=== PATIENT | female | born 1955 | race Caucasian/White ===

== ENCOUNTER → 2019-12-11 16:43 | Outpatient (CLI) | payer BC, SELFPAY ==
--- NOTE | ~2019-12-11 | MR_ITS ---
EXAMINATION: MR lumbar spine wo con EXAM DATE: 12/11/2019 17:45 INDICATION: Chronic low back pain. TECHNIQUE: Multi-sequential, multiplanar MR images of the lumbar spine were obtained without contrast . Sagittal T1, T2, T2 fat saturation images. Axial T2 weighted images. There is no prior study for comparison. FINDINGS: There is a large fat signal intensity lesion in the right gluteus minimus muscle partially imaged, imaged portion is consistent with a lipoma measuring about 9 x 5 cm, was previously imaged on a right hip CT 2014. There is a fluid signal intensity lesion in the right side of the pelvis, possi ble right ovarian cystic mass. There is 3-4 mm anterolisthesis L3 on L4 with mild to moderate loss of this disc height. Mild to mode rate loss of the L5-S1 disc height and moderate to severe loss of the L4-5 disc height, but with only mild endplate degenerative change. Level by level evaluation: T12-L1: Disc does not extend beyond the endplate margin. Facet arthropathy: Mild. Neural foraminal stenosis: No stenosis. Central canal stenosis: No stenosis. L1-L2: Disc does not extend beyond the endplate margin. Facet arthropathy: Mild. Neural foraminal stenosis: No stenosis. Central canal stenosis: No stenosis. L2-L3: There is a mild diffuse disc bulge. Facet arthropathy: Mild to moderate. Neural foraminal stenosis: No stenosis. Central canal stenosis: No stenosis. L3-L4: There is a mild to moderate diffuse disc bulge. Facet arthropathy: Severe . Ligamentum flavum enlargement. Neural foraminal stenosis: Mild to moderate left, mild right. Central canal stenosis: No stenosis. L4-L5: There is a mild to moderate diffuse disc bulge. Facet arthropathy: Moderate. Neural foraminal stenosis: Moderate left, mild to moderate right. Central canal stenosis: Mild to moderate. L5-S1: There is a mild diffuse disc bulge. Facet arthropathy: Mild. Neural foraminal stenosis: No stenosis. Central canal stenosis: No stenosis. IMPRESSION: 1. L3-4 grade 1 anterolisthesis, severe facet arthropathy causing moderate central canal stenosis. 2. Left L4-5 neural foramina is most narrowed on exam. 3. Incidental right-sided pelvic cystic mass incompletely imaged, possible cystic ovarian neoplasm. No evidence of complexity on the images available. Consider pelvic ultrasound or CT pelvis. Reviewed, dictated and finalized at location A. IMPRESSION: 1. L3-4 grade 1 anterolisthesis, severe facet arthropathy causing moderate olivia tral canal stenosis. 2. Left L4-5 neural foramina is most narrowed on exam. 3. Incidental right-sided pelvic cystic mass incompletely imaged, possible cys tic ovarian neoplasm. No evidence of complexity on the images available. Consid er pelvic ultrasound or CT pelvis.
== END ==
DX: M54.16 Radiculopathy, lumbar region (principal)
CPT/HCPCS: 72148

== ENCOUNTER 2022-02-08 02:35 | Day surgery (SDC) | payer BC, SELFPAY ==
[2022-01-28 13:32] VITALS: BMI 21.0
[2022-02-08 11:05] VITALS: BP 120/54; PULSE 60; RESP 18; TEMP 36.6; O2SAT 98; BMI 20.7
[2022-02-08] MEDS: LACTATED RINGERS 1,000 ML 150 ML IV CONT (11:25)
--- NOTE | 2022-02-08 12:06 | WPDGICN ---
Assessment and Plan Assessment and plan (1) Encounter for screening colonoscopy: Code(s): Z12.11 - Encounter for screening for malignant neoplasm of colon Status: Acute Assessment and Plan: Patient presents today for screening colonoscopy. She appears to be at average risk for colon polyps. Further recommendations may be given after colonoscopy. GI Consult Note Consult date/time: 02/08/22 12:06 HPI: Rehana Bull is a 66 year old female Presents for screening colonoscopy. Patient's current weight appetite bowel movements are normal. She denies abdominal pain. She has had no bleeding. Family history is noncontributory. Patient recently had antibiotics for URI. Subsequently developed diarrhea. She states that this is resolved. She denies any bleeding or weight loss. Review of Systems Review of Systems: All systems reviewed & are unremarkable except as noted in HPI and below PMFSH Social History Social History Years smoked: 30 Smoking status: Heavy tobacco smoker Tobacco type: cigarettes Alcohol intake: never Substance use: never Substance use type: does not use Living arrangements: with family Spiritual care concerns: No Meds Home Medications and Allergies Home Medications Medication Instructions Recorded Confirmed Type amlodipine 5 mg PO DAILY 01/28/22 02/08/22 History bisoprolol-hydrochlorothiazide 5 - 6.25 tablet PO BID 01/28/22 02/08/22 History hydrocodone-acetaminophen 10 - 325 tablet PO PRN PRN 01/28/22 02/08/22 History levothyroxine [Synthroid] 25 mcg PO DAILY 01/28/22 02/08/22 History lysine 500 mg PO DAILY 01/28/22 02/08/22 History quinapril 20 mg PO DAILY 01/28/22 02/08/22 History Allergies Allergy/AdvReac Type Severity Reaction Status Date / Time No Known Allergies Allergy Verified 02/08/22 11:15 Vital Signs Vital Signs - 24 hr 02/08/22 11:05 Temperature 97.8 F Pulse Rate 60 Respiratory Rate 18 Blood Pressure 120/54 L Pulse Oximetry 98 Exam Narrative: Physical exam reveals patient to be alert. Vital signs stable. HEENT exam is unremarkable. Patient is anicteric. Lungs are clear to auscultation and percussion. Heart is without murmur or extra sounds. Abdominal exam bowel sounds are present soft nontender with no organomegaly. Digital external rectal exam is normal.
--- NOTE | 2022-02-08 12:18 | WPDANESEPPF ---
Anes - Initial Pre Proc Eval Procedure: Operation Date: 02/08/22 12:30 Proposed Procedures p Screening Colonoscopy - Michael Montilla MD Date/Time: 02/08/22 12:18 Surgeon: Michael Montilla MD Pre Op Diagnosis: neoplasm screening Patient Data Age: 66 Gender: F Height: 1.7 m Weight: 59.9 kg Last Vital Signs Temp 97.8 F 02/08/22 11:05 Pulse 60 02/08/22 11:05 Resp 18 02/08/22 11:05 BP 120/54 L 02/08/22 11:05 Pulse Ox 98 02/08/22 11:05 Allergies Allergy/AdvReac Type Severity Reaction Status Date / Time No Known Allergies Allergy Verified 02/08/22 11:15 Home Medications Medication Instructions Recorded Confirmed Type amlodipine 5 mg PO DAILY 01/28/22 02/08/22 History bisoprolol-hydrochlorothiazide 5 - 6.25 tablet PO BID 01/28/22 02/08/22 History hydrocodone-acetaminophen 10 - 325 tablet PO PRN PRN 01/28/22 02/08/22 History levothyroxine [Synthroid] 25 mcg PO DAILY 01/28/22 02/08/22 History lysine 500 mg PO DAILY 01/28/22 02/08/22 History quinapril 20 mg PO DAILY 01/28/22 02/08/22 History Patient hx anesthesia problems: none Family hx anesthesia problems: none Results Review: All pre-operative results and documents have been reviewed as part of the pre-operative evaluation. PMFSH Social History Social History Years smoked: 30 Smoking status: Heavy tobacco smoker Tobacco type: cigarettes Alcohol intake: never Substance use: never Substance use type: does not use Living arrangements: with family Spiritual care concerns: No Anes - Eval Final PreProcedure Day of Procedure 02/08/22 12:18 Patient weight: normal Heart: regular rate and rhythm Lungs: clear to auscultation Airway: Mallampati scale class II Neurological: alert and oriented Last oral intake: >/= 8 hours ASA classification: III Emergent: no Anesthetic plan: proceed Anesthesia type and monitoring: general GIVS and standard monitoring Results Review: All pre-operative results and documents have been reviewed as part of the pre-operative evaluation. Informed Consent: The patient's anesthetic plan and its attendant risks and benefits were discussed with the patient/family/POA. Questions were solicited and answers provided to the satisfaction of the patient/family/POA.
--- NOTE | 2022-02-08 13:08 | SUR.OPER ---
ADIA Be and ADIA Doll verified collection of two cecum colon polyps with Dr. Montilla and sent specimen
[2022-02-08 13:10] VITALS: BP 143/63; PULSE 60; RESP 20; O2SAT 100
[2022-02-08 13:20] VITALS: BP 147/67; PULSE 54; RESP 21; O2SAT 100
[2022-02-08 13:30] VITALS: BP 148/59; PULSE 50; RESP 16; O2SAT 100
== END 2022-02-08 13:45 | disposition home or self-care (01) ==
PROVIDERS: Visit Provider Internal Medicine Gastroenterology
PROC: 0DJD8ZZ Inspection of Lower Intestinal Tract, Via Natural or Artificial Opening Endoscopic (ICD-10-PCS; CPT 45378; principal; 2022-02-08 12:30)
DX: Z12.11 Encounter for screening for malignant neoplasm of colon (principal); D12.0 Benign neoplasm of cecum; K64.8 Other hemorrhoids; E03.9 Hypothyroidism, unspecified; F17.210 Nicotine dependence, cigarettes, uncomplicated
CPT/HCPCS: 45385; 88305; J2704; J7120

== ENCOUNTER → 2023-01-24 08:02 | Outpatient (CLI) | payer BC, SELFPAY ==
--- NOTE | ~2023-01-24 | MR_ITS ---
EXAMINATION: MR pelvis wo/w con DATE: 01/24/2023 09:33 INDICATION: Pelvic mass TECHNIQUE: Magnetic resonance imaging (MRI) of the pelvis was performed without and with 10 mL Multih ance intravenous contrast. Fullfield sequences of the pelvis included axial and coronal T2-weighted S S FSE, coronal 2D FIESTA, axial T1-weighted FSPGR, axial dual-echo T1-weighted FSPGR and axial T1 nupur ghted LAVA. Small field of view sequences included axial, sagittal and coronal T2-weighted FSE cente red on the uterus and adnexa. Postcontrast sequences included a time course axial T1-weighted LAVA w ith fullfield of view of the pelvis. COMPARISON: CT dated 03/03/2015 and MRI dated 12/11/2019 FINDINGS: 5.0 x 4.5 x 4.0 cm simple appearing T2 hyperintense right adnexal cyst. The uterus and left ovary are not identified and have likely been surgically resected. Bladder is normal. 1.2 cm T2 hyperintense n onenhancing cyst at the lower pole of the right kidney. Visualized portions of bowels including the a ppendix are normal. No free fluid in the pelvis. No pathologically enlarged pelvic or inguinal lympha denopathy. 11.8 x 10.9 x 7.2 cm right gluteus medius T1 hyperintense and images the fat saturating in tramuscular lipoma. No nodular enhancing soft tissue component. IMPRESSION: 1. 5.0 cm simple appearing right adnexal cyst. 2. 11.8 cm right gluteus medius intramuscular lipoma. Reviewed, dictated and finalized at location A.
== END ==
PROVIDERS: PCP Family Medicine; Visit Provider Surgery
DX: R19.00 Intra-abdominal and pelvic swelling, mass and lump, unspecified site (principal)
CPT/HCPCS: 72197; A9577

== ENCOUNTER 2023-04-18 14:00 | Outpatient (CLI) | payer BC, SELFPAY ==
[2023-04-18 14:33] LABS: Mean Corpuscular HGB Conc 34.1 g/dl (32-36); Mean Corpuscular Hemoglobin 33.3 pg (26-34); Mean Corpuscular Volume 97.6 fl (80-100); Mean Platelet Volume 9.8 fl (7.4-10.4); Platelet Count Result 161 k/mm3 (150-375); Red Blood Count 4.51 M/mm3 (4.2-5.4); White Blood Count 7.1 K/mm3 (4.5-10.0)
[2023-04-18 14:54] LABS: Anion Gap 4 mmol/L (8-16); Blood Urea Nitrogen 10 mg/dL (7-17); Calcium 9.1 mg/dL (8.4-10.2); Carbon Dioxide 36 mmol/L (22-30); Chloride 101 mmol/L (98-107); Estimated Glomerular Filt Rate > 60; Glucose 79 mg/dL (65-110); Potassium 4.1 mmol/L (3.4-5.0); Sodium 141 mmol/L (137-145)
== END 2023-04-18 14:01 | disposition home or self-care (01) ==
LOC: ANHSURGERY 14:06
PROVIDERS: Anesthesiology; PCP Family Medicine; Visit Provider Obstetrics & Gynecology
DX: N94.89 Other specified conditions associated with female genital organs and menstrual cycle (principal); T50.2X5A Adverse effect of carbonic-anhydrase inhibitors, benzothiadiazides and other diuretics, initial encounter; Z01.818 Encounter for other preprocedural examination
CPT/HCPCS: 36415; 80048; 85027; 86850; 86900; 86901

== ENCOUNTER 2023-04-21 02:20 | Day surgery (SDC) | payer BC, SELFPAY ==
[2023-04-18 10:10] VITALS: BMI 20.5
--- NOTE | 2023-04-18 10:16 | SUR.PREOP ---
Report to the Outpatient Waiting Room, entrance under the green pavilion located off [facility], at time _0600 on date _04/21/23 . Planned Procedure Time: _0730 . Time changes happen often and if your time is changed the preop area will call you the afternoon before. - You and your visitor will be asked to self-screen and do not enter if you have any COVID symptoms. - A mask is optional within the hospital at this time. Patients may have clear liquids (water, carbonated beverages, clear teas, apple juice) until 3 hours prior to surgery with a maximum of 20 ounces. - No food from midnight until time of surgery - Infants may have breast milk until 4 hours before surgery, infant formula 6 hours prior to surgery. - Children will be allowed to drink immediately following surgery. If applicable, please bring a bottle or sippy cup to assist with drinking. Juice, water, soda, and popsicles are readily available. For infants on formula, please bring formula the day of surgery. Pacifiers are allowed. Take the following medications with a SIP of water the morning of surgery: _AMLODIPINE,PAIN MEDICATION IF NEEDED DO NOT STOP ANY OF YOUR OTHER PRESCRIPTION MEDICATIONS PRIOR TO SURGERY ?EXCEPT THE FOLLOWING Medications to discontinue per physician __VITAMINS Date to take last dose__04/18/23 Please no make-up, nail colombian, hairspray, perfume, deodorant, or body powder the day of surgery. No jewelry (including any body piercings) or valuables the day of surgery, leave them at home. Please take a shower or bath the night before, or the morning of, surgery with an antibacterial soap. Wear comfortable, loose fitting clothing. Children are encouraged to wear pajamas. - Jewelry must be removed prior to entering the operating room. Rings and piercings that are not removed may be cut off. - The hospital will not accept responsibility for valuables. - Please leave all valuables, including medications, at home the day of surgery. If you are going home after surgery, a licensed livery car driver must drive you home. - NO public transportation without another adult if you receive anesthesia. - We recommend that an adult stay with you for 24 hours following discharge. - We also recommend that you do not drive, make important decision, drink alcoholic beverages, or take any drugs that were not prescribed by your health care provider for at least 24 hours after your discharge time. For Pediatric surgeries, we recommend two adults accompany the child home. Follow any additional instructions given to you from your surgeon. If you or anyone in your household have experienced Covid symptoms in the past week, please notify your surgeon or the nurse liaison at the phone number below for possible testing. Telephone instructions given to PARTH SOFIA and asked if any additional questions and then verbalized understanding. Patient advised to call surgeon office or pre surgery nurse liaison [phone] if any additional questions.
[2023-04-21] VITALS (8 sets, daily range): BP systolic 100–153; BP diastolic 56–87; PULSE 56–75; RESP 12–16; TEMP 36.3–36.6; O2SAT 95–100
[2023-04-21] MEDS: LACTATED RINGERS 1,000 ML 30 ML IV CONT ×2 (06:25→09:11)
[2023-04-21] MEDS: ACETAMINOPHEN 500 MG TABLET 1000 MG PO (07:00)
--- NOTE | 2023-04-21 07:02 | WPDANESEPPF ---
Anes - Initial Pre Proc Eval Procedure: Operation Date: 04/21/23 07:30 Proposed Procedures p Robotic Assisted Laparoscopic Bilateral Salpingo oophorectomy - Mohan Cool MD Date/Time: 04/21/23 07:02 Surgeon: Mohan Cool MD Pre Op Diagnosis: pelvic pain Patient Data Age: 67 Gender: F Height: 1.7 m Weight: 60 kg Last Vital Signs Temp 36.6 C 04/21/23 06:13 Pulse 62 04/21/23 06:13 Resp 16 04/21/23 06:13 BP 153/81 H 04/21/23 06:13 Pulse Ox 100 04/21/23 06:13 O2 Del Method Room Air 04/21/23 06:13 Allergies Allergy/AdvReac Type Severity Reaction Status Date / Time No Known Allergies Allergy Verified 04/21/23 05:59 Home Medications Medication Instructions Recorded Confirmed Type amlodipine 5 mg tablet 5 mg PO DAILY 01/28/22 04/18/23 History bisoprolol 5 5 - 6.25 tablet PO BID 01/28/22 04/18/23 History mg-hydrochlorothiazide 6.25 mg tablet hydrocodone 10 mg-acetaminophen 10 - 325 tablet PO PRN PRN Pain 01/28/22 04/18/23 History 325 mg tablet lysine 500 mg tablet 500 mg PO DAILY 01/28/22 04/18/23 History cholecalciferol (vitamin D3) 50 50 mcg PO DAILY 04/11/23 04/18/23 History mcg (2,000 unit) capsule estradiol 0.01% (0.1 mg/gram) 1 g vaginal 2XW #42.5 grams 04/11/23 04/18/23 Rx vaginal cream lisinopril 20 mg tablet 20 mg PO DAILY 04/18/23 04/18/23 History Patient hx anesthesia problems: none Family hx anesthesia problems: none Results Review: All pre-operative results and documents have been reviewed as part of the pre-operative evaluation. 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 Hx: UTI (urinary tract infection) Hypertension Lipoma of buttock Other ovarian cyst, right side Preeclampsia Surgical History Surgical History Delivery by section H/O breast augmentation H/O colonoscopy (02/08/22) benign tubular adenomas H/O: hysterectomy History of back surgery History of orthopedic surgery right acl tear Family History Family History Mother Cerebrovascular accident, Onset Age: 64 Father Heart disease Social History Social History Years smoked: 30 Smoking status: Former smoker Tobacco type: cigarettes Smoking end date: 01/01/23 Additional smoking assessment comments: cigarettes x30 years 1 ppd Alcohol intake: never Substance use: never Substance use type: marijuana Other substance usage details: eatable,not daily Living arrangements: with family Additional living arrangements comments: Occupation/Education: unemployed Gender identity (if verbalized by the patient): Female Sexual Orientation (if Verbalized by the Patient): Straight or Heterosexual Spiritual care concerns: No Anes - Eval Final PreProcedure Day of Procedure 04/21/23 07:02 Patient weight: normal Heart: regular rate and rhythm Lungs: clear to auscultation Airway: Mallampati scale class II Neurological: alert and oriented Last oral intake: >/= 8 hours ASA classification: III Emergent: no Anesthetic plan: proceed Anesthesia type and monitoring: general ETT and standard monitoring Results Review: All pre-operative results and documents have been reviewed as part of the pre-operative evaluation. Informed Consent: The patient's anesthetic plan and its attendant risks and benefits were discussed with the patient/family/POA. Questions were solicited and answers provided to the satisfaction of the patient/family/POA.
[2023-04-21] MEDS: KETOROLAC 15 MG/ML VIAL (*BKC) IV PUSH (07:03)
--- NOTE | 2023-04-21 07:06 | WPDHPUPDATE1 ---
History and Physical Update Update Date/Time: 04/21/23 07:06 Plan: Proceed with robotic bilateral salpingoophorectomy History and Physical has been reviewed, including an updated exam of the patient. There are NO changes in the patient's condition. Risks, benefits, and alternatives have been discussed and questions answered. Patient agrees to proceed with procedure.
--- NOTE | 2023-04-21 07:28 | SUR.PREOP ---
Discussed delay with patient and her .
--- NOTE | 2023-04-21 09:01 | P.OP_ITS ---
Procedure Note - Detailed Date of Procedure 04/21/23 Pre-op Diagnosis 1. Pelvic pain 2. Right ovarian cyst Post-op Diagnosis Same (3. Adhesions) Procedure Performed 1. Laparoscopic adhesiolysis 2. Laparoscopic bilateral salpingectomy (robotic) Surgeon Mohan Cool MD Anesthesia General Findings 1. Uterus surgically absent 2. Right ovary with large simple cyst 3. Left adnexa with bowel and omental adhesions/left tube and ovary without anatomic abnormality Description of Procedure Patient was prepped and draped in usual manner for this procedure. Abdominal trocar sites were marked and trocars were placed under direct visualization. [email or web address] Chas system was attached to these trocars and instruments were placed again under direct visualization. Findings were noted as above and initially the left adhesions and bowel were taken down sharply and bluntly to reveal the left ovary which was small and without abnormality. Infundibulopelvic ligament was cauterized and cut to release the ovary, and cautery was used on the mesial salpinx to remove the tube. These were both removed. Right infundibulopelvic ligament was then cauterized and cut to release the right tube and ovary. The cyst was drained of clear fluid and the ovary was removed without difficulty. Irrigation was undertaken and there was no significant bleeding. Miguel was placed empirically over all of the surgical edges. Continue to monitor for any bleeding and there was none and at this point the procedure was considered terminated. Gas was allowed to escape trocars removed incisions approximated using 4-0 Monocryl. Patient was sent to recovery room in stable condition. Estimated Blood Loss 50 Drains No Packing No Pathology Yes Complications No immediate complications Condition Stable Disposition PACU [facility] Billing Surgery - Charge Forward: Surgery Billing
[2023-04-21] MEDS: fentaNYL CITRATE INJ (*CRX) 100 MCG/2 ML VIAL 25 MCG IV PUSH ×6 (09:25→09:48)
[2023-04-21] MEDS: oxyCODONE HCL (*CRX) 5 MG TAB IR PO (10:32)
== END 2023-04-21 11:05 | disposition home or self-care (01) ==
PROVIDERS: PCP Family Medicine; Visit Provider Obstetrics & Gynecology
PROC: 8E0W4CZ Robotic Assisted Procedure of Trunk Region, Percutaneous Endoscopic Approach (ICD-10-PCS; CPT 49320; principal; 2023-04-21 07:30)
DX: R10.2 Pelvic and perineal pain (principal); N83.201 Unspecified ovarian cyst, right side; N73.6 Female pelvic peritoneal adhesions (postinfective); E04.9 Nontoxic goiter, unspecified; I10 Essential (primary) hypertension; Z87.891 Personal history of nicotine dependence; F12.90 Cannabis use, unspecified, uncomplicated
CPT/HCPCS: 58661; S2900; 88305; A9270; J1100; J1170; J1885; J2250; J2405; J2704; J2710; J3010; J7120

== ENCOUNTER → 2023-08-22 10:34 | Outpatient (CLI) | payer MEDICARE, SELFPAY ==
--- NOTE | ~2023-08-22 | XR_ITS ---
EXAMINATION: XR wrist LT 2V DATE: 08/22/2023 11:17 INDICATION: Pain in unspecified joint. TECHNIQUE: 2 views of left wrist were obtained. COMPARISON: None. FINDINGS: Bone alignment is normal. No fracture. There is severe osteoarthritis of first carpometacar pal joint. There is a loose body in first carpometacarpal joint. IMPRESSION: 1. Severe osteoarthritis of first carpometacarpal joint with loose body. Reviewed, dictated and finalized at location E. NUE COLLECTOR
--- NOTE | ~2023-08-22 | XR_ITS ---
EXAMINATION: XR wrist RT 2V DATE: 08/22/2023 11:17 INDICATION: Pain in unspecified joint. TECHNIQUE: 2 views of right wrist were obtained. COMPARISON: None. FINDINGS: Bone alignment is normal. No fracture. There is mild osteoarthritis of first carpometacarpa l joint and moderate osteoarthritis of first metacarpophalangeal joint. IMPRESSION: 1. Polyarticular osteoarthritis. Reviewed, dictated and finalized at location E. ET TESTER
--- NOTE | ~2023-08-22 | XR_ITS ---
EXAMINATION: XR foot RT min 3V DATE: 08/22/2023 11:17 INDICATION: Pain in unspecified joint. TECHNIQUE: 4 views of right foot were obtained. COMPARISON: None. FINDINGS: Bone alignment is normal. No fracture. There is mild osteoarthritis of some of the interpha langeal joints. IMPRESSION: 1. Mild polyarticular osteoarthritis. Reviewed, dictated and finalized at location E. CAL INSTRUMENT ASSEMBLER
--- NOTE | ~2023-08-22 | XR_ITS ---
EXAMINATION: XR foot LT min 3V DATE: 08/22/2023 11:17 INDICATION: Pain in unspecified joint. TECHNIQUE: 4 views of left foot were obtained. COMPARISON: None. FINDINGS: Bone alignment is normal. No fracture. There is mild osteoarthritis of fourth distal interp halangeal joint. There is an enthesophyte at plantar aspect of calcaneal tuberosity. IMPRESSION: 1. Mild osteoarthritis of fourth distal interphalangeal joint. Reviewed, dictated and finalized at location E. NEERING PRODUCTION LIAISON
--- NOTE | ~2023-08-22 | XR_ITS ---
EXAMINATION: XR hand BI arthritis min 3V DATE: 08/22/2023 11:17 INDICATION: Pain in unspecified joint. TECHNIQUE: 4 views of right hand and 4 views of left hand on a total of 7 radiographs were obtained. COMPARISON: None. FINDINGS: RIGHT HAND: There is radial subluxation of third distal phalanx with respect to the middle phalanx. N o fracture. There is a 5 mm nonaggressive lytic lesion in head of third metacarpal, likely benign. Th ere is mild osteoarthritis of first carpometacarpal joint, first metacarpophalangeal joint, second an d third proximal interphalangeal joints, and fourth and fifth distal interphalangeal joints. There is moderate osteoarthritis of second distal interphalangeal joint and severe osteoarthritis of third di stal interphalangeal joint. LEFT HAND: Bone alignment is normal. No fracture. There is severe osteoarthritis of first carpometaca rpal joint with a loose body. There is mild osteoarthritis of first metacarpophalangeal joint and fif th distal interphalangeal joint. IMPRESSION: 1. Polyarticular osteoarthritis. Reviewed, dictated and finalized at location E. RANCE SPECIAL AGENT
== END ==
PROVIDERS: PCP Family Medicine; Visit Provider Internal Medicine Rheumatology
DX: R76.8 Other specified abnormal immunological findings in serum (principal); M19.031 Primary osteoarthritis, right wrist; M19.041 Primary osteoarthritis, right hand; M19.042 Primary osteoarthritis, left hand; M19.032 Primary osteoarthritis, left wrist; M19.071 Primary osteoarthritis, right ankle and foot; M19.072 Primary osteoarthritis, left ankle and foot
CPT/HCPCS: 73100; 73130; 73630

== ENCOUNTER 2024-04-23 12:10 | Outpatient (CLI) | payer MEDICARE, SELFPAY ==
--- NOTE | ~2024-04-23 | DEXA_ITS ---
Bone Density Report Name: PARTH SOFIA Age: 68 Sex: Female Ethnicity: White Date of : 1955 Indication: postmenopausal; screening for osteoporosis; height loss; hysterectomy; Referring Provider: ANA, MING Louie Study: Bone densitometry was performed. Exam Date: April 23, 2024 Accession number: [id number] Bone Density: Region BMD T-score Z-score Classification AP Spine(L1, L2, L3) 1.080 0.6 2.5 Normal Femoral Neck (Left) 0.781 -0.6 1.1 Normal Total Hip (Left) 0.899 -0.4 1.0 Normal Femoral Neck (Right) 0.696 -1.4 0.3 Osteopenia Total Hip (Right) 0.857 -0.7 0.7 Normal Femoral Neck Mean 0.738 -1.0 0.7 Normal Total Hip Mean 0.878 -0.5 0.8 Normal World Health Organization criteria for BMD impression classify patients as: Normal (T-score at or above -1.0), Osteopenia (T-score between -1.0 and -2.5), or Osteoporosis (T-score at or below -2.5). 10-year Fracture Risk(1): Major Osteoporotic Fracture 8.7% Hip Fracture 1.8% Reported Risk Factors: [place] (), Neck BMD=0.696, BMI=21.8, smoking (1) FRAX(R) Version 3.08. Fracture probability calculated for an untreated patient. Fracture probability may be lower if the patient has received treatment. Clinical Information Provided by Patient: Smokes Has used the following medications: HRT (i.e. estrogen/hormone therapy), Vitamin D Has the following medical conditions: Hysterectomy Patient maximum height was 67 Menopause Age: 51 Drinks caffeinated beverages Onset of menses at age 15 Number of children 1 Impression: The patient has low bone mass, based on the Right Femoral Neck T-score. The patient has risk factors, including: smoking. Discussion: BONE DENSITY IS LOW AT ONE OR MORE SKELETAL SITES. This patient's lowest T-score is low at one or more skeletal sites. It meets the World Health Organization's (WHO) criteria for ?low bone mass? (T-score between -1.0 and -2.5). The patient's 10-year risk of fracture as calculated by FRAX is less than the threshold where pharmacological therapy is recommended by the National Osteoporosis Foundation (NOF). However, all treatment decisions require clinical judgment and consideration of individual patient factors, including patient preferences, comorbidities, previous drug use, risk factors not captured in the FRAX model (e.g., frailty, falls, vitamin D deficiency, increased bone turnover, interval significant decline in bone density) and possible under or overestimation of fracture risk by FRAX. The patient should follow a healthful lifestyle (good nutrition with adequate calcium and vitamin D, and appropriate weight-bearing exercise). Follow-Up: Consider repeating this study in 2 to 3 years to reassess this patient's status, or sooner if there is some new clinical indication. Reported by: Dr. Nas Baez on 04/23/2024 12:33:00 PM.
== END 2024-04-23 12:11 | disposition home or self-care (01) ==
LOC: CHSIMG 12:14
PROVIDERS: PCP Family Medicine; Visit Provider Family Medicine
DX: Z78.0 Asymptomatic menopausal state (principal); M85.88 Other specified disorders of bone density and structure, other site
CPT/HCPCS: 77080

== ENCOUNTER 2024-11-20 11:44 | Outpatient (CLI) | payer MEDICARE, SELFPAY ==
--- NOTE | ~2024-11-20 | XR_ITS ---
Lumbosacral Spine: AP and lateral views Clinical History: Lumbar radiculopathy Findings: The normal lordotic curve is maintained. No fracture evident. There is 6 mm anterolisthesis of L3 over L4. There is advanced degenerative disc narrowing at L4-L5. There is moderate to advanced facet arthropathy throughout the lumbar spine, worst from L3 through S1. Atherosclerotic calcificati ons of the aorta are noted. The sacroiliac joints are normally outlined. Impression: Moderate to advanced degenerative spondylosis, as above. 6 mm anterolisthesis of L3 over L4. Reviewed, dictated and finalized at location . [facility] M[employer] HE[employer] NURSE Impression: Moderate to advanced degenerative spondylosis, as above. 6 mm anterolisthesis of L3 over L4.
--- NOTE | ~2024-11-20 | XR_ITS ---
Cervical Spine: AP, lateral, open-mouth views Clinical History: Radiculopathy Findings: No fracture seen. There is minimal grade 1 retrolisthesis of C5 over C6. There is severe de generative disc narrowing at C5-C6 and C6-C7. There is moderate to advanced facet arthropathy through out the cervical spine. Pre-vertebral soft tissues are unremarkable. Impression: Moderate to advanced degenerative spondylosis, worst at C5-C6 and C6-C7. Please see details above. Reviewed, dictated and finalized at location M. [employer] Impression: Moderate to advanced degenerative spondylosis, worst at C5-C6 and C6-C7. Please see details above.
== END 2024-11-20 11:45 | disposition home or self-care (01) ==
DX: M47.27 Other spondylosis with radiculopathy, lumbosacral region (principal); M47.26 Other spondylosis with radiculopathy, lumbar region; M47.23 Other spondylosis with radiculopathy, cervicothoracic region; M47.22 Other spondylosis with radiculopathy, cervical region; F33.1 Major depressive disorder, recurrent, moderate; F41.1 Generalized anxiety disorder
CPT/HCPCS: 72050; 72100

== ENCOUNTER 2025-06-11 08:36 | Outpatient (CLI) | payer MEDICARE, SELFPAY ==
--- NOTE | ~2025-06-11 | XR_ITS ---
EXAMINATION: XR hip BI wo pelvis, 06/11/2025 8:52 CDT HISTORY: Pain in unspecified hip COMPARISON: No comparisons available. Findings: No acute fracture or malalignment. No significant degenerative changes. Soft tissues unremarkable. Impression: No acute fracture or malalignment. Reviewed, dictated and finalized at location A. Impression: No acute fracture or malalignment.
== END 2025-06-11 08:37 | disposition home or self-care (01) ==
LOC: MICIMG 08:37
PROVIDERS: PCP Internal Medicine; Visit Provider Pain Medicine Interventional Pain Medicine
DX: F33.1 Major depressive disorder, recurrent, moderate (principal); F41.1 Generalized anxiety disorder; M46.1 Sacroiliitis, not elsewhere classified; M47.26 Other spondylosis with radiculopathy, lumbar region; M47.22 Other spondylosis with radiculopathy, cervical region; M47.23 Other spondylosis with radiculopathy, cervicothoracic region; M47.27 Other spondylosis with radiculopathy, lumbosacral region
CPT/HCPCS: 73521